=== PATIENT | female | born 1955 | race Caucasian/White ===

== ENCOUNTER 2021-05-13 22:12 | Inpatient (IN) | payer OTHER, BC, SELFPAY ==
[~2021-05-13] VITALS: Ht 154.9 cm; Wt 52.3 kg
--- NOTE | 2021-05-13 22:13 | NUR ---
Pt bib ALS from home with respiratory distress Xtoday getting progressivley worse throughout the week. Pt brought in with non rebreather mask Pt is GCS 13 Pt is unable to speak due to SOB. Pt presents in severe respiratory distress. Pt is able to follow commands. Pt breathing is even and labored tachypnic with accessory muscle use. Pt skin is warm and moist. Pt presents with bilaterla lower extremity swelling and edema. Pt elevated BP and tachycardic. Rectal temp is 99.7. Pt sitting in high fowlers in the gurney attached to monitor.
--- NOTE | 2021-05-13 22:13 | NUR ---
Placed in room 6 . Placed on bus driver/monitor, blood pressure machine and pulse oximeter. To gown for exam. Side rails up. Report given to Juanpablo GUERRA.
[2021-05-13 22:14] VITALS: BP_SYST 173
--- NOTE | 2021-05-13 22:14 | NUR ---
ER at bedside examining patient.
--- NOTE | 2021-05-13 22:15 | NUR ---
Pt is agitated repeats "help me".
--- NOTE | 2021-05-13 22:20 | NUR ---
# 20 gauge angiocath placed to RIGHT FOREARM. Use of asceptic technique. Opsite placed over site. Blood return noted. Blood for lab drawn from site. Flushed with 10 cc of normal saline. No evidence of infiltration noted. Patient tolerated well.
--- NOTE | 2021-05-13 22:20 | NUR ---
# 20 gauge angiocath placed to LFA. Use of asceptic technique. Opsite placed over site. Blood return noted. Blood for lab drawn from site. Flushed with 10 cc of normal saline. No evidence of infiltration noted. Patient tolerated well.
--- NOTE | 2021-05-13 22:21 | NUR ---
Blood collected and sent to lab.
--- NOTE | 2021-05-13 22:25 | NUR ---
125 mg solumedrol IVP and 2G magnesium IV given per MD order.
[2021-05-13] MEDS ORDERED: IPRATROPIUM/ALBUTEROL SULFATE 3 ML AMPUL.NEB (DUONEB) INH ONE (22:30)
[2021-05-13] MEDS ORDERED: methylPREDNISolone SOD SUCC/PF 62.5 MG/ML VIAL IVP ONE (22:30)
--- NOTE | 2021-05-13 22:30 | NUR ---
Pt placed on bipap. RT at bedside 50% oxygen
[2021-05-13] MEDS ORDERED: MAGNESIUM SULFATE 50 ML IV ONE (22:33)
[2021-05-13] MEDS ORDERED: methylPREDNISolone SOD SUCC/PF 62.5 MG/ML VIAL ONE (22:34)
--- NOTE | 2021-05-13 22:37 | NUR ---
X-ray at bedside.
--- NOTE | 2021-05-13 22:40 | NUR ---
Gay catheter placed per MD order. Sterile technique applied. Dark yellow urine drained into bag.
[2021-05-13] MEDS ORDERED: IPRATROPIUM/ALBUTEROL SULFATE 3 ML AMPUL.NEB (DUONEB) ONE (22:56)
--- NOTE | 2021-05-13 23:00 | NUR ---
ABG performed by RT
[2021-05-13 23:05] LABS: HEMATOCRIT 53.1 % (36-48); MEAN CORPUSCULAR HEMOGLOBIN 31 pg (27-31); MEAN CORPUSCULAR HGB CONC 32 % (32-36); MEAN CORPUSCULAR VOLUME 98 fL (79.0-98.0); PLATELET COUNT (AUTO) 312 K/uL (130-430); RED BLOOD CELL COUNT(AUTO) 5.41 MIL/uL (4.2-6.2); RED CELL DISTRIBUTION WIDTH 16.9 % (9.0-15.0); WHITE BLOOD COUNT (AUTO) 18.1 K/uL (4.8-10.8)
--- NOTE | 2021-05-13 23:15 | NUR ---
Bipap FIO2 30%, ipap 14 epap 8 rate 22.
--- NOTE | 2021-05-13 23:18 | NUR ---
Urine collected sent to lab.
[2021-05-13 23:20] LABS: CHLORIDE 96 mmol/L (98-107); CREATININE 0.58 mg/dL (0.55-1.30); GLUCOSE 132 mg/dL (70-99); POTASSIUM 4.4 mmol/L (3.5-5.1); SODIUM SERUM 141 mmol/L (136-145); UREA NITROGEN, BLOOD 21 mg/dL (8-21)
[2021-05-13 23:25] LABS: PROTHROMBIN TIME 10.6 SECS (9.5-12.5)
[2021-05-13 23:28] LABS: ALANINE AMINOTRANSFERASE 67 U/L (12-78); ALBUMIN 4.1 g/dL (3.4-4.8); ASPARTATE AMINOTRANSFERASE 44 U/L (10-37); TOTAL BILIRUBIN 0.8 mg/dL (0.0-1.0)
[2021-05-13 23:30] LABS: ANION GAP < 3 (5-15); GFR AFRICAN AMERICAN 133 mL/min (>90)
[2021-05-13] MEDS ORDERED: SUCCINYLCHOLINE CHLORIDE 20 MG/ML(QUELICIN) IVP ONE (23:30)
[2021-05-13] MEDS ORDERED: ETOMIDATE 20 MG/ 10 ML VIAL (AMIDATE) IVP ONE (23:30)
[2021-05-13] MEDS ORDERED: PROPOFOL DRIP 100 ML IV ONE ×2 (23:30→23:37)
--- NOTE | 2021-05-13 23:35 | NUR ---
Patient not known to be of DNR status. Patient medicated with 20 mg of etomidate and 100mg succinylcholine for sedation prior to placement of ET tube. Respiratory therapy at bedside prior to placement. Size 7.5 ET tube placed by Dr. Teresa. Cuff inflated with 10 cc air. Auscultation of breath sounds over bilateral chest wall. ET tube secured with jennifer. O2 sats 98% pulse ox. PCXR ordered to check tube placement.
--- NOTE | 2021-05-13 23:38 | NUR ---
Vent settings TV 500 Rate 16 FIO2 80% PEEP 5
--- NOTE | 2021-05-13 23:40 | NUR ---
Propofol started at 5mcg/kg/min per MD order.
--- NOTE | 2021-05-13 23:40 | NUR ---
HR 110 BP 122/83 O2 100% RR 18
--- NOTE | 2021-05-13 23:45 | NUR ---
OG tube placed. Aspirated gastric fluid.X-ray confirmed placement.
--- NOTE | 2021-05-13 23:46 | NUR ---
Covid and MRSA collected and sent to lab.
[2021-05-13 23:52] LABS: BAND % (MANUAL) 10 % (0-6); EOSINOPHILS % (MANUAL) 0 % (0-7); LYMPHOCYTES % (MANUAL) 17 % (20-46); MONOCYTES % (MANUAL) 3 % (0-11)
[2021-05-13 23:53] LABS: BASOPHILS % (MANUAL) 0 % (0-2)
[2021-05-14] VITALS (34 sets, daily range): BP systolic 95–129
[2021-05-14] MEDS ORDERED: fentaNYL CITRATE/PF 100 MCG/2 ML AMP IVP ONE
--- NOTE | 2021-05-14 | NUR ---
Pt agitated and attempting to pull out ET tube. propofol titrated to 40 mcg/min/kg per MD order.
[2021-05-14] MEDS ORDERED: fentaNYL CITRATE/PF 100 MCG/2 ML AMP ONE (00:05)
--- NOTE | 2021-05-14 00:09 | NUR ---
RT at bedside.
--- NOTE | 2021-05-14 00:14 | NUR ---
500 NS bolus started per MD order.
[2021-05-14] MEDS ORDERED: NS 250 ML IV ONE (00:15)
[2021-05-14] MEDS ORDERED: ALBUTEROL SULFATE 0.083% 2.5 MG/3 ML VIAL.NEB INH PRN (00:15)
[2021-05-14] MEDS ORDERED: NOREPINEPHRINE BITARTRATE 4 MG in NS 246 ML IV ONE (00:15)
[2021-05-14] MEDS ORDERED: IPRATROPIUM BROM 0.5 MG/2.5 ML VIAL.NEB (ATROVENT) INH PRN (00:15)
[2021-05-14] MEDS ORDERED: NOREPINEPHRINE 4 MG/4 ML VIAL IV ONE (00:26)
--- NOTE | 2021-05-14 00:28 | NUR ---
Norepinephrine started 0.1mcg/kg/min per MD order.
--- NOTE | 2021-05-14 00:39 | NUR ---
# 18 gauge angiocath placed to RAC. Use of asceptic technique. Opsite placed over site. Blood return noted. Blood for lab drawn from site. Flushed with 10 cc of normal saline. No evidence of infiltration noted. Patient tolerated well.
--- NOTE | 2021-05-14 00:41 | NUR ---
Propofol 40mcg/kg/min BP120/78 HR 96/ O2 100%
[2021-05-14] MEDS ORDERED: MAGNESIUM SULFATE 50 ML IV ONE (00:45)
--- NOTE | 2021-05-14 00:53 | NUR ---
RT at bedside.
--- NOTE | 2021-05-14 00:57 | NUR ---
norepinephrine 0.2mcg/kg/min bp 89/65 HR 127
--- NOTE | 2021-05-14 01:09 | NUR ---
propofol titrated to 50 mcg/kg/min
--- NOTE | 2021-05-14 01:19 | NUR ---
Norepinephrine titrated to 0.1 mcg/kg/min BP 109/78 HR 110
--- NOTE | 2021-05-14 01:28 | NUR ---
Propofol titrated to 40 mcg/kg/min
[2021-05-14] MEDS ORDERED: ASA81 PO (01:46)
[2021-05-14] MEDS ORDERED: POTA8TAB4 PO (01:51)
[2021-05-14] MEDS ORDERED: LIP80 PO (01:51)
[2021-05-14] MEDS ORDERED: BUDE6.9H INH (01:51)
[2021-05-14] MEDS ORDERED: FURO-150 PO (01:51)
[2021-05-14] MEDS ORDERED: MAGN400T10 PO (01:51)
[2021-05-14] MEDS ORDERED: RALO60TA PO (01:51)
--- NOTE | 2021-05-14 01:51 | NUR ---
Patient will be admitted to care of Dr. Mcbride. Admitted to ICU unit. Will go to room 1. Belongings list completed. Complete and up to date summary report printed. SBAR report to be given at bedside with opportunity for questions.
--- NOTE | 2021-05-14 01:51 | NUR ---
Medication reconciliation completed with information provided by pt chart. Any prior medication reconciliation on file was reviewed and corrected.
--- NOTE | 2021-05-14 01:53 | NUR ---
Transferred to ICU bed 1 ETA now. accompanied by RN and RT.
--- NOTE | 2021-05-14 02:00 | NUR ---
ICU ADMIT Patient is sedated on vent, tolerating current vent settings. SR on monitor. Skin warm and dry. IVF infusing, no signs of infiltration noted. Gay catheter in place and draining to gravity. Safety precautions in place, call light within reach. Will continue to monitor.
--- NOTE | 2021-05-14 02:54 | NUR ---
PAGED DR. STORM FOR DR. CLARK [phone] ORDERS SPOKE WITH NEHEMIAS
[2021-05-14] MEDS: PROPOFOL DRIP 100 ML IV PRN ×4 (04:12→20:25)
[2021-05-14] MEDS: methylPREDNISolone SOD SUCC/PF 62.5 MG/ML VIAL IVP SCH ×3 (06:11→21:23)
--- NOTE | 2021-05-14 07:00 | NUR ---
Nutrition Update Saturnino Scale 15 noted. Pt admitted for Respiratory failure Diet: NPO BMI: 21.7 kg/m2 RD to follow per nutrition care standards.
--- NOTE | 2021-05-14 07:25 | NUR ---
ENDORSEMENT Patient care endorsed to maxime GUERRA.
--- NOTE | 2021-05-14 07:30 | NUR ---
INITIAL RECEIVED REPORT FROM NIGHT RN FOR CONTINUING OF CARE
--- NOTE | 2021-05-14 08:10 | NUR ---
HIGH ALERT NOTE: SPOKE TO Dr. STORM IN ICU UNIT TO START PT ON MORPHIN DRIP DUE TO AGITATION.
[2021-05-14] MEDS ORDERED: NALOXONE HCL 0.4 MG/ML AMP (NARCAN) IVP PRN (08:15)
[2021-05-14] MEDS: AZITHROMYCIN 500 MG in NS 250 ML IV SCH ×2 (08:34→11:25)
[2021-05-14] MEDS: cefTRIAXone 1 GM IVPB PREMIX 50 ML IV SCH (08:34)
[2021-05-14] MEDS: MORPHINE SULFATE IN 0.9 % NACL 100 ML IV PRN (09:14)
--- NOTE | 2021-05-14 11:28 | NUR ---
Nutrition Consult for "start on tube feeding" received. 05/14/[address] reviewed EMR, labs, MD notes, care trends. On 05/13 CXR confirmed NGT in the stomach. RD rec endorsed to CHARLIE Walker at nursing unit. Dietitian Recommendation *Recommend: Vital AF 1.2 at 30ml/hr (goal rate), initial rate 10ml, increase by 10ml q8H via NGT Provides (+propofol): 1277 kcal, 54gm protein and 584ml fluids daily. Meets: 98% of estimated calorie needs and 79% of upper end of estimated protein needs. RD to follow per nutrition care standards. ALF, RD
[2021-05-14 11:43] LABS: PROTHROMBIN TIME 10.7 SECS (9.5-12.5)
[2021-05-14 12:58] LABS: ALBUMIN 3.1 g/dL (3.4-4.8); CALCIUM 7.3 mg/dL (8.4-11.0); CREATININE 0.45 mg/dL (0.55-1.30); POTASSIUM 3.7 mmol/L (3.5-5.1); TOTAL BILIRUBIN 0.8 mg/dL (0.0-1.0)
[2021-05-14 13:17] LABS: BASOPHILS % (AUTO) 0.3 % (0.0-2.0); EOSINOPHILS % (AUTO) 0.3 % (0.0-4.0); HEMATOCRIT 45.3 % (36-48); HEMOGLOBIN 14.8 g/dL (12.0-16.0); LYMPHOCYTES # (AUTO) 0.3 K/uL (1.0-5.5); LYMPHOCYTES % (AUTO) 3.2 % (20.5-51.5); MEAN CORPUSCULAR HEMOGLOBIN 31 pg (27-31); MEAN CORPUSCULAR HGB CONC 33 % (32-36); MEAN CORPUSCULAR VOLUME 96 fL (79.0-98.0); MONOCYTES # (AUTO) 0.6 K/uL (0.0-1.0); MONOCYTES % (AUTO) 5.4 % (1.7-9.3); NEUTROPHILS # (AUTO) 9.7 K/uL (1.8-7.7); NEUTROPHILS % (AUTO) 90.8 % (40.0-70.0); PLATELET COUNT (AUTO) 236 K/uL (130-430); RED BLOOD CELL COUNT(AUTO) 4.71 MIL/uL (4.2-6.2); RED CELL DISTRIBUTION WIDTH 16.8 % (9.0-15.0); WHITE BLOOD COUNT (AUTO) 10.7 K/uL (4.8-10.8)
--- NOTE | 2021-05-14 13:45 | NUR ---
RT NOTES FIO2 TO 0.30.
--- NOTE | 2021-05-14 19:30 | NUR ---
Opening Note Received report from AM nurse using SBAR approach.
[2021-05-14] MEDS: ENOXAPARIN SODIUM 30 MG/0.3 ML SYRINGE SUBCUT SCH (21:23)
[2021-05-15] VITALS (32 sets, daily range): BP systolic 97–148
--- NOTE | 2021-05-15 | NUR ---
Turned and repositioned patient. patient tolerated well.
[2021-05-15] MEDS: PROPOFOL DRIP 100 ML IV PRN ×3 (03:23→22:04)
[2021-05-15 06:15] LABS: BASOPHILS # (AUTO) 0.2 K/uL (0.0-0.2); BASOPHILS % (AUTO) 1.4 % (0.0-2.0); EOSINOPHILS % (AUTO) 0.1 % (0.0-4.0); LYMPHOCYTES # (AUTO) 0.6 K/uL (1.0-5.5); LYMPHOCYTES % (AUTO) 5.2 % (20.5-51.5); MEAN CORPUSCULAR HEMOGLOBIN 31 pg (27-31); MEAN CORPUSCULAR HGB CONC 33 % (32-36); MEAN CORPUSCULAR VOLUME 96 fL (79.0-98.0); MONOCYTES # (AUTO) 1.4 K/uL (0.0-1.0); MONOCYTES % (AUTO) 12.1 % (1.7-9.3); NEUTROPHILS # (AUTO) 9.6 K/uL (1.8-7.7); NEUTROPHILS % (AUTO) 81.2 % (40.0-70.0); PLATELET COUNT (AUTO) 256 K/uL (130-430); RED BLOOD CELL COUNT(AUTO) 4.82 MIL/uL (4.2-6.2); RED CELL DISTRIBUTION WIDTH 16.2 % (9.0-15.0); WHITE BLOOD COUNT (AUTO) 11.9 K/uL (4.8-10.8)
[2021-05-15 06:34] LABS: ALBUMIN 2.8 g/dL (3.4-4.8); CREATININE 0.33 mg/dL (0.55-1.30); POTASSIUM 3.7 mmol/L (3.5-5.1); TOTAL BILIRUBIN 0.7 mg/dL (0.0-1.0)
[2021-05-15] MEDS: methylPREDNISolone SOD SUCC/PF 62.5 MG/ML VIAL IVP SCH ×3 (06:47→22:01)
--- NOTE | 2021-05-15 07:06 | NUR ---
INITIAL RECEIVED REPORT FROM NIGHT RN FOR CONTINUING OF CARE
[2021-05-15] MEDS ORDERED: NOREPINEPHRINE BITARTRATE 4 MG in D5W 246 ML IV PRN (07:30)
[2021-05-15] MEDS: cefTRIAXone 1 GM IVPB PREMIX 50 ML IV SCH (08:08)
--- NOTE | 2021-05-15 11:20 | NUR ---
RT NOTES Pt is awake, appears to follow simple command, per CPAP trial, vent to cpap 5 ps10. No adverse reactions noted. Will monitor pt.
--- NOTE | 2021-05-15 13:15 | NUR ---
RT NOTES Pt. remains on cpap, appears to be tired. per charge nurse abg order, awaiting dr rhoades's call.
--- NOTE | 2021-05-15 14:10 | NUR ---
RT NOTES Vent settings back to ac per ABG result.
--- NOTE | 2021-05-15 19:30 | NUR ---
Opening note Received report and assumed care. Vent to ETT in place tolerating settings in AC 14, TV 500, FIO2 30%, peep 5+. Patient becomes agitated when waking up from sedation. GT feeding in place and tolerating. Sedated with Diprivan at 40 mcg/kg/min. will continue to monitor patient as per unit protocol.
--- NOTE | 2021-05-15 19:47 | NUR ---
ENDORSEMENT SHIFT REPORT GIVEN TO NIGHT RN FOR CONTINUING OF CARE
--- NOTE | 2021-05-15 20:10 | NUR ---
Assessment completed. repositioned for comfort.
[2021-05-15] MEDS: ENOXAPARIN SODIUM 30 MG/0.3 ML SYRINGE SUBCUT SCH (22:00)
[2021-05-16] VITALS (31 sets, daily range): BP systolic 107–153
[2021-05-16] MEDS: MORPHINE SULFATE IN 0.9 % NACL 100 ML IV PRN (00:55)
[2021-05-16] MEDS: methylPREDNISolone SOD SUCC/PF 62.5 MG/ML VIAL IVP SCH ×3 (06:15→22:01)
[2021-05-16 06:23] LABS: BASOPHILS % (AUTO) 0.1 % (0.0-2.0); HEMATOCRIT 46.7 % (36-48); HEMOGLOBIN 15.3 g/dL (12.0-16.0); LYMPHOCYTES # (AUTO) 0.8 K/uL (1.0-5.5); MEAN CORPUSCULAR HEMOGLOBIN 31 pg (27-31); MEAN CORPUSCULAR HGB CONC 33 % (32-36); MEAN CORPUSCULAR VOLUME 96 fL (79.0-98.0); MONOCYTES # (AUTO) 0.6 K/uL (0.0-1.0); MONOCYTES % (AUTO) 4.5 % (1.7-9.3); NEUTROPHILS # (AUTO) 11.2 K/uL (1.8-7.7); NEUTROPHILS % (AUTO) 89.4 % (40.0-70.0); PLATELET COUNT (AUTO) 217 K/uL (130-430); RED BLOOD CELL COUNT(AUTO) 4.88 MIL/uL (4.2-6.2); RED CELL DISTRIBUTION WIDTH 16.1 % (9.0-15.0); WHITE BLOOD COUNT (AUTO) 12.5 K/uL (4.8-10.8)
[2021-05-16 06:46] LABS: ALBUMIN 2.7 g/dL (3.4-4.8); CALCIUM 8.1 mg/dL (8.4-11.0); CREATININE 0.36 mg/dL (0.55-1.30); POTASSIUM 3.8 mmol/L (3.5-5.1); TOTAL BILIRUBIN 0.7 mg/dL (0.0-1.0)
--- NOTE | 2021-05-16 09:04 | NUR ---
PLACED ON CPAP 5, PS 10 PER MD STORM. SPO2 95%, HR 77, SPONTANEOUS RR 13, VT 486ML, VE 5.4. CHARLIE ALEJANDRO NOTIFIED.
[2021-05-16] MEDS: AZITHROMYCIN 500 MG in NS 250 ML IV SCH (10:08)
[2021-05-16] MEDS: cefTRIAXone 1 GM IVPB PREMIX 50 ML IV SCH (10:08)
--- NOTE | 2021-05-16 12:20 | NUR ---
EXTUBATED PT PER MD STORM. PLACED ON NC 3LPM. SPO2 91%, HR 98. PT TOLERATING WELL. WILL CONTINUE TO MONITOR PT.
[2021-05-16] MEDS ORDERED: PHENOL/ORAL ANESTHETIC 177 ML BOTTLE MM PRN (14:00)
[2021-05-16] MEDS ORDERED: BENZOCAINE 20% 0.5mL UD SPRAY MM PRN (14:45)
--- NOTE | 2021-05-16 15:45 | NUR ---
Dietitian Recommendations * Recommend advance diet as per ST [facility] eval results * Consider cardiac therapeutic dietary restrictions LP, RD Please refer to Nutrition Assessment for details. Addendum: 05/16/21 at [address] Amended: Links added.
--- NOTE | 2021-05-16 18:11 | NUR ---
ST EVALUATION COMPLETED. ST TX NOT INDICATED AT THIS TIME. RECOMMEND DIET CHANGE TO A PO DIET OF MECHANICAL SOFT/THIN LIQUIDS. DISTANT SUPERVISION FOR ALL INTAKE AND FULL ASPIRATION PRECAUTIONS.
--- NOTE | 2021-05-16 19:30 | NUR ---
Received report and assumed care. Patient s/p extubation and tolerating on nasal canula 3 L/min. No signs of distress but patient becomes frustrated when O2 sats drop under 90%. Occasional cough with moderate secretions. able to communicate but speech is decreased; whisper like. will continue to monitor.
--- NOTE | 2021-05-16 20:30 | NUR ---
Assessment completed. Patient continues to prefer semi sitting position due to respiratory status. O2 sats 88% on 3L NC.
[2021-05-16] MEDS: ENOXAPARIN SODIUM 30 MG/0.3 ML SYRINGE SUBCUT SCH (22:01)
[2021-05-17] VITALS (22 sets, daily range): BP systolic 109–167
--- NOTE | 2021-05-17 00:47 | NUR ---
semi fawler's position with eyes closed and listening to music. No signs of distress noted at this time. Assessment completed; patient able to reposition on her own.
[2021-05-17 06:16] LABS: BASOPHILS % (AUTO) 0.1 % (0.0-2.0); EOSINOPHILS % (AUTO) 0.1 % (0.0-4.0); HEMATOCRIT 44.8 % (36-48); HEMOGLOBIN 14.6 g/dL (12.0-16.0); LYMPHOCYTES # (AUTO) 0.9 K/uL (1.0-5.5); LYMPHOCYTES % (AUTO) 6.9 % (20.5-51.5); MEAN CORPUSCULAR HEMOGLOBIN 31 pg (27-31); MEAN CORPUSCULAR HGB CONC 33 % (32-36); MEAN CORPUSCULAR VOLUME 96 fL (79.0-98.0); MONOCYTES # (AUTO) 1.2 K/uL (0.0-1.0); MONOCYTES % (AUTO) 9.9 % (1.7-9.3); NEUTROPHILS # (AUTO) 10.2 K/uL (1.8-7.7); PLATELET COUNT (AUTO) 185 K/uL (130-430); RED BLOOD CELL COUNT(AUTO) 4.68 MIL/uL (4.2-6.2); RED CELL DISTRIBUTION WIDTH 16.3 % (9.0-15.0); WHITE BLOOD COUNT (AUTO) 12.3 K/uL (4.8-10.8)
--- NOTE | 2021-05-17 06:20 | NUR ---
Dr Webster at bedside for consultation and assessment. Patient interrupting report from nurse to Physician with outburst and raising her voice stating "don't talk about me like I'm not here". Dr Webster directed his attention towards patient in a respectful manner but patient continues to appear frustrated asking "so, what's going to happen in the future?"; Dr Webster addressed her question but patient was not acknowledging his answer.
[2021-05-17] MEDS: methylPREDNISolone SOD SUCC/PF 62.5 MG/ML VIAL IVP SCH ×3 (06:39→21:56)
[2021-05-17 07:06] LABS: CALCIUM 8.2 mg/dL (8.4-11.0); CREATININE 0.48 mg/dL (0.55-1.30); POTASSIUM 4.7 mmol/L (3.5-5.1); TOTAL BILIRUBIN 0.9 mg/dL (0.0-1.0)
[2021-05-17] MEDS: BUDESONIDE 0.5 MG/2 ML AMPUL.NEB INH SCH ×2 (07:10→19:00)
--- NOTE | 2021-05-17 07:14 | NUR ---
RECEIVED REPORT FROM ENDORSING CONCRETE VIBRATOR OPERATOR RN FOR CONTINUITY OF CARE.PATIENT LYING ON BED, BED LOCKED AT LOWEST POSITION, FALL AND SAFETY PRECAUTION IN PLACE.
--- NOTE | 2021-05-17 07:32 | NUR ---
PROVIDED BREAKFAST TRAY , PATIENT KEEP ON REQUESTING ADDITIONAL GLASS OF COFFEE.PATIENT IS COOPERATIVE AT THIS TIME.
[2021-05-17] MEDS: cefTRIAXone 1 GM in D5W 50 ML IV SCH (08:39)
[2021-05-17] MEDS ORDERED: NICOTINE 21 MG/24 HR PATCH.TD24 TD ONE (09:45)
[2021-05-17] MEDS: AZITHROMYCIN 500 MG in NS 250 ML IV SCH (09:50)
[2021-05-17] MEDS: ENOXAPARIN SODIUM 30 MG/0.3 ML SYRINGE SUBCUT SCH (21:39)
--- NOTE | 2021-05-17 21:40 | NUR ---
Patient asking to discharge. Says it is a giant waste of insurance money. Questioning why she is here. [place] Measurer education patient short of breath and mechanical ventilation on arrival sent from ED to ICU. Patient needs reinforcement. Declines call to MD to leave against medical advice. Cipriano Krishna RN
[2021-05-18 04:07] VITALS: BP_SYST 136
[2021-05-18] MEDS: methylPREDNISolone SOD SUCC/PF 62.5 MG/ML VIAL IVP SCH ×3 (05:38→22:17)
--- NOTE | 2021-05-18 07:38 | NUR ---
Handoff with CHARLIE Connor. Cipriano Krishna RN
[2021-05-18 08:00] VITALS: BP_SYST 139
[2021-05-18] MEDS: cefTRIAXone 1 GM in D5W 50 ML IV SCH (08:00)
[2021-05-18] MEDS: AZITHROMYCIN 500 MG in NS 250 ML IV SCH (09:39)
[2021-05-18] MEDS: NICOTINE 21 MG/24 HR PATCH.TD24 TD SCH (10:25)
--- NOTE | 2021-05-18 10:44 | NUR ---
DANGLING, SHOUTING, WANT TO WALK NOW" PORTABLE OXYGEN TANK READY AT 2LITER, UNSTEADY WALK,, BUT AT LEAST WALKED IN THE HALLWAY FOR A VERY SHORT DISTANCE, NOTICEABLE SOB, AND DYSPNEA. MULTIPLES COMPLAINTS WHEN FIRST MET, " WANT TO GO HOME DUY NOW SEEN BY SECURITY PROGRAM MANAGER.
[2021-05-18] MEDS ORDERED: AMOX-426 PO (10:59)
[2021-05-18] MEDS ORDERED: PRED20TA PO (10:59)
[2021-05-18 12:00] VITALS: BP_SYST 128
--- NOTE | 2021-05-18 13:10 | NUR ---
FALL THIS RN CALLED BY ALENTY TO CHECK PT. WENT TO PT'S ROOM FOUND PT IN BATHROOM SITTING HANDS AND KNEES ON THE FLOOR WITH STANDING BESIDE HER. PT STATED SHE WAS USING BATHROOM AND SLID . THIS RN AND PAOLA BEARD RN HELPED ASSISTED PT TO WHEEL CHAIR AND BACK TO BED. PT DENIES ANY PAIN OR SOB THIS TIME. PT ABLE TO MOVE ALL HER EXTREMITIES. PT DENIES HITTING HER HEAD. VITALS CHECKED BP 147/88, 92 92% ON 2 L OXYGEN ,HR 110,RES 20. NOT IN ACUTE DISTRESS. PRIMARY NURSE DARA MADE AWARE.WILL INFORM DR PEREZ.
--- NOTE | 2021-05-18 13:45 | NUR ---
CALLED . CALLED DR PEREZ AND NOTIFIED ABOUT PT'S FALL NEW ORDER RECEIVED FOR PT STEF.
--- NOTE | 2021-05-18 13:46 | NUR ---
PAGED PAGED SILVER CARTER AT [phone] SPOKE WITH ODILON.
[2021-05-18 16:30] VITALS: BP_SYST 126
--- NOTE | 2021-05-18 19:10 | NUR ---
CHANGE OF SHIFT; endorsed by day shift , hold discharge today per Dr. Corado. been c/o short of breath on and off during the day. asked tech to call RT for breathing treatment.
--- NOTE | 2021-05-18 19:40 | NUR ---
NOTES: RT came to give her breathing treatment and pt. refused, O2 sat was 94%.
--- NOTE | 2021-05-18 20:05 | NUR ---
NOTES: pt. checked, sitting at the edge of the bed. pt. talks a lot, wants to know what is going on. reminded pt. not to go to restroom tonight and just use BSC, verbalized understanding since pt. fell today and that held her discharge. pt. at bedside. pt. O2 sat 93% , O2 @ 2 liters per nasal cannula. pt. has COPD and gets short of breath on exertion. IV lock on left forearm. , noted some skin bruising on left arm. turpin cath to osd. on cardiac nurse shows sinus rhythm. discussed plan of care. went to lay on her bed and repositioned self. told her will be back later for her medications. call light within reach. pt. has her own pulse oximeter.
[2021-05-18 21:00] VITALS: BP_SYST 105
--- NOTE | 2021-05-18 22:00 | NUR ---
NOTES: pt. been sleeping, awakened for medications. no acute distress. repositioned self and kep warm with blanket.
[2021-05-18] MEDS: ENOXAPARIN SODIUM 30 MG/0.3 ML SYRINGE SUBCUT SCH (22:24)
--- NOTE | 2021-05-19 00:01 | NUR ---
NOTES: pt. sleeping, no distress. call light at bedside.
--- NOTE | 2021-05-19 03:30 | NUR ---
NOTES: condition unchanged, continue to monitor. pr. emain sleeping.
[2021-05-19 06:00] VITALS: BP_SYST 118
--- NOTE | 2021-05-19 06:00 | NUR ---
NOTES: due medication given. pt. said she slept but worried about her pulse ox reading @ 99%. asked if she wants O2 off but said no. turpin cath emptied. IV lock on left forearm and rt. antecubital with PICC line on rt. upper arm.
[2021-05-19] MEDS: methylPREDNISolone SOD SUCC/PF 62.5 MG/ML VIAL IVP SCH ×2 (06:07→14:26)
--- NOTE | 2021-05-19 06:46 | NUR ---
CLOSING NOTES; pt. went bck to sleep. no distress. on safety and fall precaution. bed alarm on. possible discharge today. will endorse to incoming shift.
[2021-05-19] MEDS: BUDESONIDE 0.5 MG/2 ML AMPUL.NEB INH SCH (07:00)
[2021-05-19 08:53] VITALS: BP_SYST 101
[2021-05-19] MEDS: NICOTINE 21 MG/24 HR PATCH.TD24 TD SCH (09:00)
[2021-05-19 10:11] LABS: BASOPHILS % (AUTO) 0.1 % (0.0-2.0); HEMATOCRIT 46.3 % (36-48); LYMPHOCYTES # (AUTO) 0.4 K/uL (1.0-5.5); LYMPHOCYTES % (AUTO) 3.6 % (20.5-51.5); MEAN CORPUSCULAR HEMOGLOBIN 32 pg (27-31); MEAN CORPUSCULAR HGB CONC 33 % (32-36); MEAN CORPUSCULAR VOLUME 97 fL (79.0-98.0); MONOCYTES # (AUTO) 0.6 K/uL (0.0-1.0); MONOCYTES % (AUTO) 5.2 % (1.7-9.3); NEUTROPHILS % (AUTO) 91.1 % (40.0-70.0); PLATELET COUNT (AUTO) 212 K/uL (130-430); RED BLOOD CELL COUNT(AUTO) 4.78 MIL/uL (4.2-6.2); RED CELL DISTRIBUTION WIDTH 16.3 % (9.0-15.0)
--- NOTE | 2021-05-19 10:55 | NUR ---
OPENING NOTES LATE ENTRY DUE TO PT CARE 0715- SITTING IN THE BEDSIDE COMMODE. NOTED RESPIRATORY DISTRESS. PT IS ON O2 AT 2 LITERS NASAL CANNULA AND HAS O2 AT HOME. ASSISTED TO THE RESTROOM, AMBULATED WITH FWW MINIMAL ASSIST. DAILY WT TAJKEN AND RECORDED. PLAN OF CARE DISCUSSED WITH PATIENT. PATIENT VERBALIZED UNDERSTANDING 0900- MD HERE TO SEE PATIENTR. ABG RESULT RELAYED TO MD. PATIENT WILL BE DISCHARGE HOME TODAY WITH HOME HEALTH PHYSICAL THERAPY 0915- SELLERS CATHETER REMOVED. PERINEAL CARE DONE.
[2021-05-19 12:21] LABS: CALCIUM 8.2 mg/dL (8.4-11.0); CREATININE 0.47 mg/dL (0.55-1.30); POTASSIUM 4.1 mmol/L (3.5-5.1)
[2021-05-19 12:29] VITALS: BP_SYST 133
--- NOTE | 2021-05-19 12:30 | NUR ---
ROUNDS AT THE BEDSIDE. PATIENT APPEARS VERY EXCITED. " GUESS WHAT HE BROUGHT ME". PATIENT OPENED A TIN CAN INSIDE IT WERE 3 DONUTS HOLES. 1 OF THE DONUT HOLE WAS IN A DIFFERENT CONTAINER. PATIENT OPENED IT AND HAD ME SMELL IT, I TOLD THE PATIENT THAT THEY SMELL LIKE EDIBLE CANNABIS AND THE PATIENT AND THE CONFIRMED IT. " I HAVE NOT BEEN STONED FOR A WHILE". i EDUCATED BOTH PATIENT AND NOT TO USE IT WHILE ADMITTED IN THE HOSPITAL AND ADVISED TO TAKE IT BACK HOME. I WILL FOLLOW UP
[2021-05-19 12:56] VITALS: BP_SYST 133
--- NOTE | 2021-05-19 13:30 | NUR ---
CM: [facility] ipa is closed on week end, business hour m-f 8-5 pm. cm faxed the dc order for HH/PT to fax # [phone]. Per CHARLIE Martinez, she will evaluate to dc pt today. DEMOND will contact [facility] in am for HH set up.
--- NOTE | 2021-05-19 14:08 | NUR ---
DISCHARGE PLANNING PATIENT IS AGREEABLE TO HAVE HOME HEALTH PHYSICAL THERAPY AT HOME. PER DANDY LAGOS, UNABLE TO GET AUTHORIZATION FROM INSURANCE FOR HOME HEALTH ORDER UNTIL Thursday05/20/21. PATIENT WANTS TO GO HOME AND STATED THAT SHE CAN WAIT UNTIL TOMORROW WHILE AT HOME FOR THE HOME HEALTH. CALLED DR PEREZ TO OBTAIN CLEARANCE.
[2021-05-19] MEDS: cefTRIAXone 1 GM in D5W 50 ML IV SCH (14:26)
--- NOTE | 2021-05-19 16:48 | NUR ---
D/C Patient Patient given medication reconciliation form and D/C instructions. Exit Care provided. Patient verbalized understanding. MD discussed with patient the results and treatment provided. Ambulatory with steady gait for discharge to home. Patient in stable condition, ID band removed. IV catheter removed, intact and dressing applied, no active bleeding. Rx of given. Patient educated on pain management. All belongings sent with patient. Addendum: 05/19/21 at 1652 by Chaparrita Jean-Baptiste RN LATE ENTRY DUE TO PATIENT CARE 1530: DISREGARD ABOVE NOTE D/C Patient Patient given medication reconciliation form and D/C instructions. Exit Care provided. Patient verbalized understanding. MD discussed with patient the results and treatment provided. Patient in stable condition, ID band removed.PICC line removed, intact and dressing applied, no active bleeding. Rx Augmentin and prednisone given. Patient educated on O2 use at home and smoking cessation. All belongings sent with patient. Home health will follow up by case management 05/20/21
--- NOTE | 2021-05-19 17:57 | NUR ---
PCP FOLLOW UP APPOINTMENT PATIENT AND REFUSED FOR DEMONSTRATOR KNITTING TO MAKE APPOINTMENT FOR PCP FOLLOW UP WITHIN 7 DAYS OF DISCHARGE. BOTH STATED THEY WILL CALL DR WISE THEMSELVES
--- NOTE | 2021-05-20 08:30 | NUR ---
CM: Called [facility] main line # [phone] s/w customer service and was told that the pt belongs to [facility]. CM faxed the referral to fax # [phone]. Call ref # [id number]. I was transferred to the dept but the phone was ringing , no answer for several minutes. Addendum: 05/20/21 at 1454 by Chantell Jeffers RN late entry 1100am : Called [facility] main line again, spoke with Kassandra /JAMIA she transferred me to dept. Again phone was ringing with no one answer.
--- NOTE | 2021-05-20 14:40 | NUR ---
CM: Able to get through [facility] with customer service line/Sarai 's assistance. She communicated with [facility] dept and confirmed receipt the fax referral to # [phone], tel [phone], call ref # [id number]. Stated the out of area CM will call me back with updated HH arrangement.
== END 2021-05-19 15:30 | disposition home health service (06) | DRG 208 ==
LOC: SED 22:12 → SIC 05-14 00:15 → STU 05-17 19:53
PROVIDERS: ADMIT Internal Medicine Hospice and Palliative Medicine; ATTEND Internal Medicine Hospice and Palliative Medicine
PROC: 5A1945Z Respiratory Ventilation, 24-96 Consecutive Hours (ICD-10-PCS; principal; 2021-05-13)
PROC: 5A09357 Assistance with Respiratory Ventilation, Less than 24 Consecutive Hours, Continuous Positive Airway Pressure (ICD-10-PCS; 2021-05-13)
PROC: 0BH17EZ Insertion of Endotracheal Airway into Trachea, Via Natural or Artificial Opening (ICD-10-PCS; 2021-05-13)
PROC: 02HV33Z Insertion of Infusion Device into Superior Vena Cava, Percutaneous Approach (ICD-10-PCS; 2021-05-13)
DX: J96.21 Acute and chronic respiratory failure with hypoxia (principal); J44.1 Chronic obstructive pulmonary disease with (acute) exacerbation; J96.22 Acute and chronic respiratory failure with hypercapnia; I27.81 Cor pulmonale (chronic); D75.1 Secondary polycythemia; Z20.822 Contact with and (suspected) exposure to COVID-19; D72.829 Elevated white blood cell count, unspecified; I11.0 Hypertensive heart disease with heart failure; I50.9 Heart failure, unspecified; Z72.0 Tobacco use; Z79.01 Long term (current) use of anticoagulants
CPT/HCPCS: 36415; 36600; 71045; 80048; 80053; 82803-TC; 83605; 83880; 84484; 85007; 85025; 85027; 85610-TC; 85730-TC; 87040-TC; 87070-TC; 87081; 87205-TC; 92610-GN; 93005; 94002; 94003; 94640; 94660; 94760; 96365; 96375; 97163-GP; 97530-GP; 99291; G0378; J0330; J0456; J0696; J1650; J1956; J2270; J2704; J2930; J3010; J3475; J3490; J7050; J7060; J7626